=== PATIENT | female | born 1955 | race Caucasian/White ===

== ENCOUNTER → 2018-10-02 | Day surgery (SDC) | payer OTHER ==
[~2018-10-02] VITALS: Ht 172.7 cm; Wt 61.2 kg
[~2018-10-02] MED LIST: INVOKAMET1 TA3 PO; METFORMIN1000 MG PO; TRAD5TAB1 PO
--- NOTE | ~2018-10-02 | O ---
[place], [place] OPERATIVE NOTE NAME: KATIE FERNANDO UNIT #: [id number] ROOM: DOCTOR: JULIETH DIEZ MD BIRTHDATE: [birth year] DOS: 10/02/2018 GASTROENDOSCOPIC REPORT IDENTIFICATION: This is a 63-year-old patient who presented with a chief complaint of concern about colonic screening. ALLERGIES: To no known medications. FAMILY HISTORY: Grandparents with colonic carcinoma. PAST SURGICAL HISTORY: Unremarkable. PAST MEDICAL HISTORY: Diabetes, overactive bladder. SOCIAL HISTORY: Nonsmoker. Social alcohol consumer. PROCEDURE: Today's procedure part of investigation is colonoscopy plus photographic series. PREMEDICATION: Propofol. SCOPE: Olympus forward-viewing colonoscope 10L video. REPORT: After putting the patient in left lateral position and application of lubricant to the scope, scope was introduced, thereafter under direct visualization advanced through the length of colon without difficulty. Colon mucosa and vascularity carefully examined. Diverticulosis of mild degree was noticed in the sigmoid colon. Scope was negotiated to the base of cecum. Otherwise, ileocecal valve was defined. The patient extubated, tolerated the procedure well. IMPRESSION: Diverticulosis. PLAN AND DISCUSSION: High-fiber fruit diet. ACTIVITY: Ad norris. FOLLOWUP: Routinely with you in office, p.r.n. visit with us in GI [facility]. Thank you very much indeed. [place], [place] OPERATIVE NOTE NAME: KATIE FERNANDO UNIT #: [id number] ROOM: DOCTOR: JULIETH DIEZ MD BIRTHDATE: [birth year] JULIETH DIEZ MD CM:OPRECORD:OPERATIVE NOTE 0920 1155 JULIETH DIEZ MD 10/02/18 1156 interface
[2018-10-02 08:05] VITALS: BP 140/87
[2018-10-02 08:56] VITALS: BP 115/74
[2018-10-02 09:11] VITALS: BP 132/91
[2018-10-02 09:26] VITALS: BP 146/84
== END | disposition home or self-care (01) ==
LOC: SDC 09-26 13:15
DX: Z12.11 Encounter for screening for malignant neoplasm of colon (principal); Z80.0 Family history of malignant neoplasm of digestive organs; K57.30 Diverticulosis of large intestine without perforation or abscess without bleeding; E11.9 Type 2 diabetes mellitus without complications; Z98.890 Other specified postprocedural states; Z79.899 Other long term (current) drug therapy; Z87.891 Personal history of nicotine dependence

== ENCOUNTER → 2020-02-26 | Outpatient (CLI) | payer OTHER ==
[~2020-02-26] MED LIST changes: +JANUVIA50 MG PO; +OXYBUTYNIN CHLO10 MG PO
[2020-02-26 16:52] LABS: HEMATOCRIT 18.5 % (37.0-47.0)
[2020-02-27 08:54] VITALS: BP 103/61
[2020-02-27 09:32] VITALS: BP 98/62
[2020-02-27 09:47] VITALS: BP 109/61
[2020-02-27 10:17] VITALS: BP 112/65
[2020-02-27 10:55] VITALS: BP 106/71
[2020-02-27 11:10] VITALS: BP 109/72
== END | disposition home or self-care (01) ==
LOC: LAB 15:13
PROVIDERS: Internal Medicine Hematology & Oncology
DX: C50.912 Malignant neoplasm of unspecified site of left female breast (principal)

== ENCOUNTER → 2020-02-27 | Outpatient (CLI) | payer OTHER ==
[2020-02-27 08:54] VITALS: BP 103/61
== END | disposition home or self-care (01) ==
LOC: TRNFUSION 07:50
DX: C50.912 Malignant neoplasm of unspecified site of left female breast (principal); E11.9 Type 2 diabetes mellitus without complications

== ENCOUNTER → 2020-03-02 | Outpatient (CLI) | payer OTHER ==
[2020-03-02 08:15] VITALS: BP 105/66
[2020-03-02 08:30] LABS: HEMATOCRIT 21.1 % (37.0-47.0)
[2020-03-02 09:21] VITALS: BP 104/60
[2020-03-02 09:41] VITALS: BP 94/54
[2020-03-02 10:36] VITALS: BP 102/56
[2020-03-02 11:25] VITALS: BP 102/60
== END | disposition home or self-care (01) ==
LOC: TRNFUSION 00:53
PROVIDERS: Internal Medicine Hematology & Oncology
DX: C50.912 Malignant neoplasm of unspecified site of left female breast (principal); E11.9 Type 2 diabetes mellitus without complications; Z87.891 Personal history of nicotine dependence

== ENCOUNTER → 2020-03-19 | Outpatient (CLI) | payer OTHER ==
[~2020-03-19] MED LIST changes: +Carafate1 GM PO; +PROTONIX40 MG PO
[2020-03-19 08:42] LABS: HEMATOCRIT 21.5 % (37.0-47.0)
[2020-03-20 08:20] VITALS: BP 105/58
[2020-03-20 09:05] VITALS: BP 99/55
[2020-03-20 09:20] VITALS: BP 102/55
[2020-03-20 09:35] VITALS: BP 117/62
[2020-03-20 11:00] VITALS: BP 118/60
--- NOTE | 2020-03-20 11:05 | NUR ---
BLOOD PRODUCT STARTED AT 0850, ENDED AT 1105.
[2020-03-20 11:40] VITALS: BP 110/60
== END | disposition home or self-care (01) ==
LOC: TRNFUSION 00:34
PROVIDERS: ATTEND Internal Medicine Hematology & Oncology
DX: C50.912 Malignant neoplasm of unspecified site of left female breast (principal); E11.9 Type 2 diabetes mellitus without complications

== ENCOUNTER → 2020-04-01 | Outpatient (CLI) | payer OTHER ==
[2020-04-01] VITALS (15 sets, daily range): BP systolic 98–138; BP diastolic 52–77
[~2020-04-01] MED LIST changes: -Carafate1 GM PO; -PROTONIX40 MG PO
[2020-04-01 09:36] LABS: MEAN CELL VOLUME 99.3 fl (81.0-99.0); MEAN CORPUSCULAR HGB 32.5 pg (27.0-31.0); MEAN CORPUSCULAR HGB CONC 32.7 g/dl (33.0-37.0); MEAN PLATELET VOLUME 11.2 fl (9.6-12.3); RED BLOOD COUNT 1.51 10*6/uL (4.10-5.10); RED CELL DISTRI WIDTH 20.4 % (0-14.5); WHITE BLOOD COUNT 15.9 10*3/uL (4.8-10.8)
[2020-04-01 09:41] LABS: PLATELET COUNT AUTOMATED 8 10*3/uL (130-400)
[2020-04-01 10:11] LABS: PLATELET SUFFICIENCY LOW (NORMAL); POLYCHROMASIA SLIGHT; TOTAL CELLS COUNTED 100 #CELLS; TOXIC GRANULATION MARKED
== END | disposition home or self-care (01) ==
LOC: TRNFUSION 02:16
PROVIDERS: Internal Medicine Hematology & Oncology
DX: C50.912 Malignant neoplasm of unspecified site of left female breast (principal)

== ENCOUNTER → 2020-04-02 | Emergency (ER) | payer OTHER ==
[~2020-04-02] VITALS: Ht 170.1 cm; Wt 49.4 kg
[2020-04-02 14:31] LABS: RED CELL DISTRI WIDTH 17.8 % (0-14.5)
[2020-04-02 14:39] LABS: HEMATOCRIT 23.9 % (37.0-47.0); MEAN CORPUSCULAR HGB 31.7 pg (27.0-31.0); MEAN CORPUSCULAR HGB CONC 35.6 g/dl (33.0-37.0); MEAN PLATELET VOLUME 13.2 fl (9.6-12.3); RED BLOOD COUNT 2.68 10*6/uL (4.10-5.10); WHITE BLOOD COUNT 21.6 10*3/uL (4.8-10.8)
[2020-04-02 14:43] LABS: ACT PARTIAL THROMBO TIME 27.1 SECONDS (20.0-32.1); INTERNATIONAL NORM RATIO 1.1 (2.0-3.5)
[2020-04-02 14:46] LABS: ALBUMIN 2.5 gm/dl (3.1-4.5); ALKALINE PHOSPHATASE 92 U/L (45-117); BUN 22 mg/dl (7-24); CHLORIDE 98 mmol/L (98-107); CREATININE 0.86 mg/dL (0.55-1.02); SGOT/AST 10 IU/L (3-35); SGPT/ALT 14 U/L (12-78); SODIUM 136 mmol/L (136-145); TOTAL PROTEIN 5.4 gm/dL (6.4-8.2)
[2020-04-02 14:50] LABS: POTASSIUM 2.3 mmol/L (3.5-5.1); TROPONIN I < 0.015 ng/ml (<0.045)
[2020-04-02 14:59] LABS: MEAN CELL VOLUME 89.2 fl (81.0-99.0)
[2020-04-02 15:00] LABS: PLATELET COUNT AUTOMATED 6 10*3/uL (130-400)
[2020-04-02 15:02] LABS: PLATELET SUFFICIENCY LOW (NORMAL); TOTAL CELLS COUNTED 100 #CELLS
[2020-04-02 15:03] LABS: TOXIC GRANULATION SLIGHT
[2020-04-02 15:30] VITALS: BP 149/74
[2020-04-02 15:45] VITALS: BP 145/76
[2020-04-02 16:00] VITALS: BP 149/79
[2020-04-02 16:13] VITALS: BP 137/69
[2020-04-02 16:37] VITALS: BP 138/70
== END ==
LOC: ED 13:01
PROVIDERS: Physician Assistant
DX: D69.6 Thrombocytopenia, unspecified (principal); R19.7 Diarrhea, unspecified; Z88.6 Allergy status to analgesic agent; Z79.899 Other long term (current) drug therapy

== ENCOUNTER 2020-04-12 19:34 | Inpatient (IN) | payer OTHER ==
[~2020-04-12] VITALS: Ht 170.2 cm; Wt 47.8 kg
[2020-04-12] VITALS (16 sets, daily range): BP systolic 90–123; BP diastolic 50–74
[2020-04-12 20:15] LABS: MEAN CORPUSCULAR HGB 31.6 pg (27.0-31.0); MEAN CORPUSCULAR HGB CONC 31.6 g/dl (33.0-37.0); MEAN PLATELET VOLUME 10.1 fl (9.6-12.3); PLATELET COUNT AUTOMATED 89 10*3/uL (130-400); WHITE BLOOD COUNT 10.7 10*3/uL (4.8-10.8)
[2020-04-12 20:32] LABS: ALBUMIN 2.6 gm/dl (3.1-4.5); ALKALINE PHOSPHATASE 69 U/L (45-117); BUN 18 mg/dl (7-24); CHLORIDE 103 mmol/L (98-107); POTASSIUM 3.6 mmol/L (3.5-5.1); SGOT/AST 13 IU/L (3-35); SGPT/ALT 15 U/L (12-78); SODIUM 138 mmol/L (136-145); TOTAL PROTEIN 5.9 gm/dL (6.4-8.2)
[2020-04-12 20:34] LABS: TROPONIN I < 0.015 ng/ml (<0.045)
[2020-04-12 20:36] LABS: OVALOCYTES FEW; PLATELET SUFFICIENCY LOW (NORMAL); ROULEAUX SLIGHT; TOTAL CELLS COUNTED 100 #CELLS
--- NOTE | 2020-04-12 23:00 | NUR ---
A 64, admitted to 5E, under the services of Dr. LILLI MONTALVO,SRIDHAR Murray with a diagnosis of RECTAL HEMORRHAGE, SIRS, RECTAL BLEEDING, ELEVATED LACTIC ACID. Chief complaint is BRIGHT RED RECTAL BLEEDING. Patient arrived via ambulatory from ER. Monitor applied. Initial assessment completed. Vital signs taken and recorded. DR. LILLI MONTALVO,SRIDHAR Murray notified of admission to the unit. Orders received. See assessment for past medical history, medications and allergies. Patient and/or family oriented to unit. visitation policy reviewed. Clothing/patient valuable form completed. JORGITO BOURNE
[2020-04-13] VITALS (15 sets, daily range): BP systolic 93–140; BP diastolic 45–82
--- NOTE | 2020-04-13 04:54 | NUR ---
NOTIFIED DR. REEDER THAT 3RD UNIT OF [facility] JUST FINISHED AND ASKED HIM IF HE WANTED ME TO HAVE HER LABS DRAWN AND NOTIFY HIM OF RESULTS BEFORE GIVING 4TH UNIT. HE STATED TO GIVE ALL 4 UNITS AND THEN NOTIFY HIM OF RESULTS OF BLOOD WORK.
--- NOTE | 2020-04-13 06:06 | NUR ---
DR. GALLARDO NOTIFIED OF CONSULT FOR RECTAL HEMORRHAGE. UPDATED ON CONDITION AND SAID HE WILL BE IN TODAY TO SEE HER.
--- NOTE | 2020-04-13 06:34 | NUR ---
PATIENT HAS HAD 5 EPISODES OF BLOODY DIARRHEA WITH CLOTS. VITAL SIGNS STABLE AT THIS TIME. WILL CONTINUE TO MONITOR. CALL LIGHT IN REACH.
[2020-04-13 08:56] LABS: BASO % 0.2 % (0.0-1.0); EOS % 0.2 % (1.0-4.0); HEMATOCRIT 25.5 % (37.0-47.0); LYMPH # 1.3 10*3/uL (1.3-4.4); LYMPH % 19.3 % (27.0-41.0); MEAN CORPUSCULAR HGB 29.9 pg (27.0-31.0); MEAN CORPUSCULAR HGB CONC 33.3 g/dl (33.0-37.0); MEAN PLATELET VOLUME 10.3 fl (9.6-12.3); MONO # 0.5 10*3/uL (0.1-1.0); MONO % 6.9 % (3.0-9.0); NEUT # 4.7 10*3/uL (2.3-7.9); NEUT % 72.8 % (47.0-73.0); PLATELET COUNT AUTOMATED 72 10*3/uL (130-400); RED BLOOD COUNT 2.84 10*6/uL (4.10-5.10); RED CELL DISTRI WIDTH 16.6 % (0-14.5); WHITE BLOOD COUNT 6.5 10*3/uL (4.8-10.8)
[2020-04-13 08:59] LABS: MEAN CELL VOLUME 89.8 fl (81.0-99.0)
[2020-04-13 09:11] LABS: BUN 22 mg/dl (7-24); CHLORIDE 110 mmol/L (98-107); CREATININE 0.74 mg/dL (0.55-1.02); POTASSIUM 4.1 mmol/L (3.5-5.1); SODIUM 141 mmol/L (136-145)
--- NOTE | 2020-04-13 12:59 | NUR ---
Flatbed Stitcher in to talk to patient. Patient states lives at home with family. There are no steps in the home. Physician: juan m Pharmacy: mail Home health services: Patient's level of ADLs: INDEPENDENT Patient has working utilities: all working DME: none Follow-up physician's appointment after d/c: will be made by hospitalist nurse director upon discharge Does patient want to access PORTAL?: no Discharge plan discussed with patient, he lives at home, is independent in adls and ambualtion, he states he will return home when discharged and denies any home needs, case management will follow. KELLI KAISER
--- NOTE | 2020-04-13 17:44 | NUR ---
PT C/O NAUSEA. NAUSEA MED GIVEN. WILL REASSESS.
--- NOTE | 2020-04-13 18:37 | NUR ---
PT REPORT PRN ZOFRAN EFFECTIVE
[2020-04-14] VITALS (9 sets, daily range): BP systolic 107–139; BP diastolic 57–86
[2020-04-14 06:08] LABS: BUN 16 mg/dl (7-24); CHLORIDE 111 mmol/L (98-107); CREATININE 0.77 mg/dL (0.55-1.02); POTASSIUM 3.2 mmol/L (3.5-5.1); SODIUM 141 mmol/L (136-145)
[2020-04-14 06:12] LABS: BASO % 0.2 % (0.0-1.0); EOS % 0.7 % (1.0-4.0); HEMATOCRIT 22.5 % (37.0-47.0); LYMPH # 1.3 10*3/uL (1.3-4.4); LYMPH % 32.6 % (27.0-41.0); MEAN CELL VOLUME 89.3 fl (81.0-99.0); MEAN CORPUSCULAR HGB 30.2 pg (27.0-31.0); MEAN CORPUSCULAR HGB CONC 33.8 g/dl (33.0-37.0); MEAN PLATELET VOLUME 10.6 fl (9.6-12.3); MONO # 0.3 10*3/uL (0.1-1.0); MONO % 8.5 % (3.0-9.0); NEUT # 2.3 10*3/uL (2.3-7.9); NEUT % 57.5 % (47.0-73.0); PLATELET COUNT AUTOMATED 89 10*3/uL (130-400); RED BLOOD COUNT 2.52 10*6/uL (4.10-5.10); RED CELL DISTRI WIDTH 16.9 % (0-14.5)
--- NOTE | 2020-04-14 09:00 | NUR ---
case management visits with patient, she states she will return home and denies any home needs, case management will follow
[2020-04-15] VITALS (14 sets, daily range): BP systolic 108–142; BP diastolic 63–85
[2020-04-15 06:34] LABS: MEAN CORPUSCULAR HGB 30.5 pg (27.0-31.0); MEAN CORPUSCULAR HGB CONC 33.2 g/dl (33.0-37.0); MEAN PLATELET VOLUME 10.4 fl (9.6-12.3); PLATELET COUNT AUTOMATED 107 10*3/uL (130-400); RED BLOOD COUNT 2.13 10*6/uL (4.10-5.10); RED CELL DISTRI WIDTH 16.5 % (0-14.5)
[2020-04-15 06:40] LABS: HEMATOCRIT 19.6 % (37.0-47.0)
--- NOTE | 2020-04-15 06:44 | NUR ---
DR. FERNANDO NOTIFIED OF CRITICAL HGB AND HCT. ORDERED TO TRANSFUSE 2 UNITS OF BLOOD
[2020-04-15 07:07] LABS: OVALOCYTES FEW; ROULEAUX SLIGHT; TOTAL CELLS COUNTED 100 #CELLS
[2020-04-15 07:08] LABS: BURR CELLS FEW; PLATELET SUFFICIENCY LOW (NORMAL); SCHISTOCYTES FEW; TOXIC GRANULATION SLIGHT
--- NOTE | 2020-04-15 09:00 | NUR ---
case management visits with patient, she will return home when discharged and denies any home needs, case management will follow
--- NOTE | 2020-04-15 09:09 | NUR ---
BLOOD TRANSFUSION INITIATED AT THIS TIME.
--- NOTE | 2020-04-15 12:17 | NUR ---
SECOND UNIT OF BLOOD INITIATED AT THIS TIME.
--- NOTE | 2020-04-15 12:35 | NUR ---
PT'S 2 UNITS OF BLOOD COMPLETE AT THIS TIME, VITALS STBALE, PT TOLERATED WELL.
[2020-04-15 17:04] LABS: BASO % 0.3 % (0.0-1.0); EOS % 0.5 % (1.0-4.0); HEMATOCRIT 27.5 % (37.0-47.0); LYMPH # 1.3 10*3/uL (1.3-4.4); LYMPH % 32.2 % (27.0-41.0); MEAN CELL VOLUME 90.8 fl (81.0-99.0); MEAN CORPUSCULAR HGB 30.4 pg (27.0-31.0); MEAN CORPUSCULAR HGB CONC 33.5 g/dl (33.0-37.0); MEAN PLATELET VOLUME 9.7 fl (9.6-12.3); MONO # 0.4 10*3/uL (0.1-1.0); MONO % 10.1 % (3.0-9.0); NEUT # 2.3 10*3/uL (2.3-7.9); NEUT % 56.4 % (47.0-73.0); PLATELET COUNT AUTOMATED 105 10*3/uL (130-400); RED BLOOD COUNT 3.03 10*6/uL (4.10-5.10); RED CELL DISTRI WIDTH 15.5 % (0-14.5)
[2020-04-16] VITALS: BP 129/76
[2020-04-16 06:58] LABS: BASO % 0.6 % (0.0-1.0); EOS # 0.1 10*3/uL (0.0-0.4); EOS % 1.9 % (1.0-4.0); HEMATOCRIT 30.1 % (37.0-47.0); LYMPH # 1.2 10*3/uL (1.3-4.4); LYMPH % 40.1 % (27.0-41.0); MEAN CELL VOLUME 90.1 fl (81.0-99.0); MEAN CORPUSCULAR HGB 29.9 pg (27.0-31.0); MEAN CORPUSCULAR HGB CONC 33.2 g/dl (33.0-37.0); MEAN PLATELET VOLUME 10.1 fl (9.6-12.3); MONO # 0.3 10*3/uL (0.1-1.0); MONO % 9.4 % (3.0-9.0); NEUT # 1.5 10*3/uL (2.3-7.9); PLATELET COUNT AUTOMATED 129 10*3/uL (130-400); RED BLOOD COUNT 3.34 10*6/uL (4.10-5.10); RED CELL DISTRI WIDTH 15.6 % (0-14.5); WHITE BLOOD COUNT 3.1 10*3/uL (4.8-10.8)
[2020-04-16 08:00] VITALS: BP 136/78
--- NOTE | 2020-04-16 10:30 | NUR ---
case management visits with patient, she states she is feeling better that she had felt in a long time, she was able to tolerate a diet. she states she is hoping to return home possibly today and denies any home needs, case mangement will follow
[2020-04-16 12:00] VITALS: BP 142/66
[2020-04-16] MEDS ORDERED: Carafate1 GM PO (12:08)
[2020-04-16] MEDS ORDERED: PROTONIX40 MG PO (12:10)
--- NOTE | 2020-04-16 13:50 | NUR ---
Discharge instructions reviewed with patient/family. Patient receptive and verbalizes understanding. Follow-up care arranged. Written instructions given to patient/family. MEDIPORT DEACCESSED. PATIENT AMBULATORY OFF FLOOR AT THIS TIME, PICKED UP BY FAMILY. PRESCRIPTIONS GIVEN. RANDAL PADILLA
== END 2020-04-16 13:50 | disposition home or self-care (01) | DRG 377 ==
LOC: ED 19:34 → 5E 21:39 → EDHOLD 21:39 → 5E 22:44
PROVIDERS: Emergency Medicine; Surgery; ADMIT Internal Medicine
PROC: 30233N1 Transfusion of Nonautologous Red Blood Cells into Peripheral Vein, Percutaneous Approach (ICD-10-PCS; principal; 2020-04-12)
PROC: 0DJD8ZZ Inspection of Lower Intestinal Tract, Via Natural or Artificial Opening Endoscopic (ICD-10-PCS; 2020-04-14)
PROC: 0DB68ZX Excision of Stomach, Via Natural or Artificial Opening Endoscopic, Diagnostic (ICD-10-PCS; 2020-04-14)
DX: K29.71 Gastritis, unspecified, with bleeding (principal); E43 Unspecified severe protein-calorie malnutrition; D62 Acute posthemorrhagic anemia; Z68.1 Body mass index [BMI] 19.9 or less, adult; K29.81 Duodenitis with bleeding; E87.6 Hypokalemia; C50.919 Malignant neoplasm of unspecified site of unspecified female breast; D70.1 Agranulocytosis secondary to cancer chemotherapy; D69.59 Other secondary thrombocytopenia; E11.9 Type 2 diabetes mellitus without complications; K57.90 Diverticulosis of intestine, part unspecified, without perforation or abscess without bleeding; T45.1X5A Adverse effect of antineoplastic and immunosuppressive drugs, initial encounter; Y92.89 Other specified places as the place of occurrence of the external cause; Z88.5 Allergy status to narcotic agent

== ENCOUNTER → 2024-12-24 | Outpatient (CLI) | payer MEDICARE ==
[~2024-12-24] MED LIST changes: +Carafate1 GM PO; +PROTONIX40 MG PO
[2024-12-24 09:45] LABS: ALKALINE PHOSPHATASE 64 U/L (46-116); BUN 12 mg/dl (9-23); CHLORIDE 98 mmol/L (98-107); FREE T4 1.07 ng/dl (0.89-1.76); SGPT/ALT 14 U/L (5-49); TOTAL PROTEIN 7.5 gm/dL (6.0-8.0)
== END | disposition home or self-care (01) ==
LOC: LAB 08:58
PROVIDERS: ATTEND Family Medicine
DX: E03.9 Hypothyroidism, unspecified (principal); R63.4 Abnormal weight loss

== ENCOUNTER → 2025-03-31 | Outpatient (CLI) | payer MEDICARE ==
[2025-03-31 09:04] LABS: MEAN CELL VOLUME 89.2 fl (81.0-99.0); MEAN CORPUSCULAR HGB 29.1 pg (27.0-31.0); MEAN PLATELET VOLUME 9.6 fl (9.6-12.3); NUCLEATED RED BLOOD CELL 0.0 % (0.0-0.0); NUCLEATED RED BLOOD CELL 0.0 10*3/uL (0.0-0.0); PLATELET COUNT AUTOMATED 211.0 10*3/uL (130-400); RED CELL DISTRI WIDTH 15.8 % (0-14.5)
[2025-03-31 10:10] LABS: BUN 11 mg/dl (9-23); FREE T4 1.19 ng/dl (0.89-1.76); LDL CHOLESTEROL 89 mg/dL (9-159); SGPT/ALT 13 U/L (5-49)
[2025-03-31 10:20] LABS: VITAMIN D, 25-HYDROXY 38.4 ng/mL (30-100)
== END | disposition home or self-care (01) ==
LOC: LAB 08:43
PROVIDERS: ATTEND Family Medicine
DX: I10 Essential (primary) hypertension (principal); E11.9 Type 2 diabetes mellitus without complications; E55.9 Vitamin D deficiency, unspecified; E78.5 Hyperlipidemia, unspecified; R53.83 Other fatigue